=== PATIENT | female | born 2000 | race Caucasian/White ===

== ENCOUNTER 2018-01-28 13:08 | Observation (INO) | payer MEDICAID ==
[~2018-01-28] VITALS: Ht 157.5 cm; Wt 60.8 kg
[2018-01-28] MEDS ORDERED: FERR325T6 PO (13:43)
[2018-01-28] MEDS ORDERED: PNV1TABL76 PO (13:43)
== END 2018-01-28 14:30 | disposition home or self-care (01) ==
LOC: L&D 13:08
PROVIDERS: ADMIT Obstetrics & Gynecology; ATTEND Obstetrics & Gynecology
DX: O26.893 Other specified pregnancy related conditions, third trimester (principal); Z3A.37 37 weeks gestation of pregnancy
CPT/HCPCS: 59025; 76815; 76818; G0378

== ENCOUNTER 2018-02-11 13:22 | Observation (INO) | payer MEDICAID ==
[~2018-02-11] VITALS: Ht 157.5 cm; Wt 67.1 kg
[~2018-02-11 13:22] MED LIST: FERR325T6 PO; PNV1TABL76 PO
== END 2018-02-11 16:15 | disposition home or self-care (01) ==
LOC: L&D 13:22
PROVIDERS: ADMIT Obstetrics & Gynecology Obstetrics; ATTEND Obstetrics & Gynecology
DX: O36.5930 Maternal care for other known or suspected poor fetal growth, third trimester, not applicable or unspecified (principal); Z3A.39 39 weeks gestation of pregnancy
CPT/HCPCS: 59025; 76815; 76818; G0378

== ENCOUNTER 2018-02-13 12:45 | Observation (INO) | payer MEDICAID ==
[~2018-02-13] VITALS: Ht 157.5 cm; Wt 61.2 kg
== END 2018-02-13 14:10 | disposition home or self-care (01) ==
LOC: L&D 12:45
PROVIDERS: ADMIT Obstetrics & Gynecology; ATTEND Obstetrics & Gynecology
DX: O62.9 Abnormality of forces of labor, unspecified (principal); Z3A.39 39 weeks gestation of pregnancy
CPT/HCPCS: 59025; 76815; 76818; G0378

== ENCOUNTER 2018-02-18 07:21 | Observation (INO) | payer MEDICAID ==
[~2018-02-18] VITALS: Ht 157.5 cm; Wt 61.2 kg
== END 2018-02-18 08:45 | disposition home or self-care (01) ==
LOC: L&D 07:21
PROVIDERS: ADMIT Obstetrics & Gynecology; ATTEND Obstetrics & Gynecology
DX: O62.9 Abnormality of forces of labor, unspecified (principal); O46.93 Antepartum hemorrhage, unspecified, third trimester; Z3A.39 39 weeks gestation of pregnancy
CPT/HCPCS: G0378